=== PATIENT | female | born 1970 | race Caucasian/White ===

== ENCOUNTER → 2019-06-09 06:54 | Outpatient (CLI) | payer BC, SELFPAY ==
--- NOTE | ~2019-06-09 | MM_ITS ---
EXAMINATION: MM screening nohemi BI w lita HISTORY: Screening mammogram TECHNIQUE: Craniocaudal and mediolateral oblique 3-D tomosynthesis images were obtained and synthetic 2-D images were generated. CAD analysis was submitted and interpreted. COMPARISON: 05/13/2018 bilateral digital screening mammogram BREAST PARENCHYMAL COMPOSITION: There are scattered areas of fibroglandular density. FINDINGS: Stable circumscribed approximately 5.5 mm opacity is noted in the outer mid right breast. C ircumscribed 2.8 mm nodule is noted in the upper outer left breast. There is a likely benign intramam paty lymph nodes. There is no evidence of suspicious mass, calcification, or architectural distortion to suggest malignancy in either breast. There has been no suspicious interval change. IMPRESSION: 1. No mammographic evidence of malignancy. 2. Recommend routine screening mammography in one year. BI-RADS Category 2: Benign finding(s). Reviewed, dictated and finalized at location A. DCAST TECHNICIAN
== END ==
PROVIDERS: Visit Provider Obstetrics & Gynecology
DX: Z12.31 Encounter for screening mammogram for malignant neoplasm of breast (principal)
CPT/HCPCS: 77063; 77067

== ENCOUNTER → 2020-04-04 16:33 | Outpatient (CLI) | payer BC, SELFPAY ==
--- NOTE | ~2020-04-04 | XR_ITS ---
EXAMINATION: XR chest 2V DATE: 04/04/2020 16:54 INDICATION: Cough. TECHNIQUE: Frontal and lateral views of the chest were obtained. COMPARISON: None. FINDINGS: The chest demonstrates clear lungs without pneumonia, pleural effusion, or pneumothorax. Th e heart size is normal. IMPRESSION: 1. No acute cardiopulmonary disease. Reviewed, dictated and finalized at location B. IT BREEDER
== END ==
PROVIDERS: PCP Nurse Practitioner Family; Visit Provider Family Medicine
DX: R05 Cough (principal)
CPT/HCPCS: 71046

== ENCOUNTER 2020-04-05 06:57 | Outpatient (NON) | payer BC, SELFPAY ==
[2020-04-05 23:33] LABS: SARS-CoV-2 RNA PCR Negative
== END 2020-04-05 06:58 ==
LOC: ANHCOVIDDT 06:57
PROVIDERS: Visit Provider Family Medicine
DX: Z20.828 Contact with and (suspected) exposure to other viral communicable diseases (principal); R05 Cough
CPT/HCPCS: 87635; C9803; U0003

== ENCOUNTER → 2020-09-28 16:05 | Outpatient (CLI) | payer BC, SELFPAY ==
--- NOTE | ~2020-09-28 | MM_ITS ---
EXAMINATION: MM screening nohemi BI w lita HISTORY: Screening TECHNIQUE: Craniocaudal and mediolateral oblique 3-D tomosynthesis images were obtained and synthetic 2-D images were generated. CAD analysis was submitted and interpreted. COMPARISON: Comparison to multiple prior studies sequentially, with oldest reviewed study dated 05/13. BREAST PARENCHYMAL COMPOSITION: There are scattered areas of fibroglandular density. FINDINGS: There is no evidence of suspicious mass, calcification, or architectural distortion to sugg est malignancy in either breast. There has been no suspicious interval change. IMPRESSION: 1. No mammographic evidence of malignancy. 2. Recommend routine screening mammography in one year. BI-RADS Category 1: Negative Reviewed, dictated and finalized at location A.
== END ==
PROVIDERS: PCP Nurse Practitioner Family; Visit Provider Obstetrics & Gynecology
DX: Z12.31 Encounter for screening mammogram for malignant neoplasm of breast (principal)
CPT/HCPCS: 77063; 77067

== ENCOUNTER → 2021-09-30 07:54 | Outpatient (CLI) | payer BC, SELFPAY ==
--- NOTE | ~2021-09-30 | MM_ITS ---
EXAMINATION: MM screening nohemi BI w lita HISTORY: Screening mammogram, family history of breast cancer in her mother. TECHNIQUE: Craniocaudal and mediolateral oblique 3-D tomosynthesis images were obtained and synthetic 2-D images were generated. CAD analysis was submitted and interpreted. COMPARISON: 09/28/2020 06/09/2019, 05/13/2018 BREAST PARENCHYMAL COMPOSITION: There are scattered areas of fibroglandular density. FINDINGS: A stable intramammary lymph node is noted in the upper outer quadrant of the right breast. There is no suspicious mass, calcification, or architectural distortion to suggest malignancy in eith er breast. There has been no suspicious interval change. IMPRESSION: 1. No mammographic evidence of malignancy. 2. Recommend routine screening mammography in one year. BI-RADS Category 2: Benign finding(s). Reviewed, dictated and finalized at location A.
== END ==
PROVIDERS: PCP Family Medicine; Visit Provider Obstetrics & Gynecology
DX: Z12.31 Encounter for screening mammogram for malignant neoplasm of breast (principal)
CPT/HCPCS: 77063; 77067

== ENCOUNTER → 2022-11-07 15:58 | Outpatient (CLI) | payer BC, SELFPAY ==
--- NOTE | ~2022-11-07 | MM_ITS ---
EXAMINATION: MM screening nohemi BI w lita HISTORY: Screening mammogram, family history of breast cancer in her mother. TECHNIQUE: Craniocaudal and mediolateral oblique 3-D tomosynthesis images were obtained and synthetic 2-D images were generated. CAD analysis was submitted and interpreted. COMPARISON: 09/30/2021, 09/28/2020, 06/09/2019 BREAST PARENCHYMAL COMPOSITION:There are scattered areas of fibroglandular density. FINDINGS: Stable small lymph node at the outer right breast. No suspicious mass, calcification, or ar chitectural distortion are identified in either breast to suggest malignancy. There has been no suspi cious interval change. IMPRESSION: No mammographic evidence of malignancy. Recommend routine screening mammography in one year. BI-RADS Category 2: Benign finding(s). Reviewed, dictated and finalized at location .
== END ==
PROVIDERS: PCP Obstetrics & Gynecology; Visit Provider Obstetrics & Gynecology
DX: Z12.31 Encounter for screening mammogram for malignant neoplasm of breast (principal)
CPT/HCPCS: 77063; 77067

== ENCOUNTER 2023-12-12 15:45 | Outpatient (CLI) | payer BC, SELFPAY ==
--- NOTE | ~2023-12-12 | MM_ITS ---
EXAMINATION: MM screening nohemi BI w lita HISTORY: Screening TECHNIQUE: Craniocaudal and mediolateral oblique 3-D tomosynthesis images were obtained and synthetic 2-D images were generated. CAD analysis was submitted and interpreted. COMPARISON: Comparison to multiple prior studies sequentially, with oldest reviewed study dated 05/13. BREAST PARENCHYMAL COMPOSITION: Not dense: There are scattered areas of fibroglandular density. FINDINGS: There is no evidence of suspicious mass, calcification, or architectural distortion to sugg est malignancy in either breast. There has been no suspicious interval change. IMPRESSION: 1. No mammographic evidence of malignancy. 2. Recommend routine screening mammography in one year. BI-RADS Category 1: Negative Reviewed, dictated and finalized at location B.
== END 2023-12-12 15:46 ==
LOC: MICIMG 15:47
PROVIDERS: PCP Nurse Practitioner Family; Visit Provider Obstetrics & Gynecology
DX: Z12.31 Encounter for screening mammogram for malignant neoplasm of breast (principal)
CPT/HCPCS: 77063; 77067

== ENCOUNTER 2024-11-04 00:15 | Day surgery (SDC) | payer BC, SELFPAY ==
[2024-10-09 14:18] VITALS: BMI 31.8
--- OUTSIDE RECORDS SUMMARY | 2024-11-04 00:18 | XMS_ITS | Clinical Summary ---
Author Organization [facility] Address [address] [place] [address] Care Team Providers Care Assistant Head Cashier Name Role Phone Chiquita Machuca MD Primary Care Provider [phone] Source Comments [facility],non-[facility] Affiliates and Associated Physician Practices is amultiple site organization consisting of ambulatory clinics and hospital sitesin [place], [place], [place] and [place]. This disclosure is being madepursuant to the Care Everywhere program and may not contain all information available regarding this patient. Last updated 18.[facility] [employer] Allergies No known active allergies Medications * Be aware that medications may not be up to date on this document. Alwaysverify current medications with the patient. NORETHINDRONE PO Active benzonatate (TESSALON) 200 MG capsule Take 1 capsule by mouth 3 times daily as needed for Cough 30 capsule 06/26/2017 Active Family History Medical History Relation Name Comments Cancer - Lung Father Hypertension Father Cancer - Breast Mother Hypertension Mother Relation Name Status Comments Father Mother Alive Social History Tobacco Use Types Packs/Day Years Used Date Smoking Tobacco: Some Days Cigars Smokeless Tobacco: Never Comments:Socially only Comments No Sex and Gender Information Value Date Recorded Sex Assigned at Not on file Legal Sex Female 6:37 AM PARAPROFESSIONAL INTERPRETER Gender Identity Not on file Sexual Orientation Not on file Last Filed Vital Signs Vital Sign Reading Time Taken Comments Blood Pressure 118/70 06/26/2017 10:48 AM PARAPROFESSIONAL INTERPRETER Pulse 84 06/26/2017 10:48 AM PARAPROFESSIONAL INTERPRETER Temperature 37.7 C (99.8 F) 06/26/2017 10:48 AM PARAPROFESSIONAL INTERPRETER Respiratory Rate 16 06/26/2017 10:48 AM PARAPROFESSIONAL INTERPRETER Oxygen Saturation 98% 06/26/2017 10:48 AM PARAPROFESSIONAL INTERPRETER Inhaled Oxygen Concentration - - Weight 81.6 kg (180 lb) 06/26/2017 10:48 AM PARAPROFESSIONAL INTERPRETER Height 162.6 cm (5' 4) 06/26/2017 10:48 AM PARAPROFESSIONAL INTERPRETER Body Mass Index 30.9 06/26/2017 10:48 AM PARAPROFESSIONAL INTERPRETER Plan of Treatment Health Maintenance Due Date Last Done Comments COLOGUARD (AGES 45-75) - COL ON CA SCREENING 1968 COLON MONITORING 1968 COLONOSCOPY - COLON CA SCREENING 1968 CT COLONOGRAPHY - COLON CA SCREENING 1968 Colorectal Cancer Screening 1968 FIT - COLON CA SCREENING 1968 FLEX SIG - COLON CA SCREENING 1968 LIPID TESTING 1968 MAMMOGRAM 1968 HIV SCREENING 10/09/1983 HEPATITIS C SCREENING 10/04/1986 DTAP/TDAP/TD VACCINES (1 - Tdap) 10/09/1987 HEPATITIS B VACCINE (1 of 3 - 19+ 3-dose series) 10/09/1987 SCREENING FOR DIABETES 06/26/2017 PNEUMOCOCCAL VACCINE 50+ (1 of 1 - PCV) 2018 ZOSTER VACCINE (1 of 2) 2018 COVID-19 VACCINE (1 - 2023-2 5 season) 2023 DEPRESSION SCREENING 04/29/2024 INFLUENZA VACCINE (#1) 2024 HIB VACCINE Aged Out No longer eligi ble based on patient's age to complete this topic HPV VACCINE Aged Out No longer eligi ble based on patient's age to complete this topic MENINGOCOCCAL (Group B) VACC INE SHARED DECISION-MAKING Aged Out No longer eligibl e based on patient's age to complete this topic MENINGOCOCCAL GROUPS A/C/Y/W VACCINE Aged Out No longer eligible b ased on patient's age to complete this topic Insurance [facility] Address: [address] [address] Care Teams Assistant Head Cashier Relationship Specialty Start Date End Date Chiquita Machuca MD [address] [facility] [id number] PCP - General Internal Medicine 06/26/17
[2024-11-04 08:50] VITALS: BP 114/75; PULSE 81; RESP 12; TEMP 36.6; O2SAT 99; BMI 32.0
[2024-11-04] MEDS: LACTATED RINGERS 1,000 ML 150 ML IV CONT (09:10)
--- NOTE | 2024-11-04 09:12 | P.PNAN_ITS ---
Anes - Initial Pre Proc Eval Procedure: Operation Date: 11/04/24 10:00 Proposed Procedures p Screening Colonoscopy - Toni Mercado MD Date/Time: 11/04/24 09:12 Surgeon: Toni Mercado MD Pre Op Diagnosis: screening Patient Data Age: 54 Gender: F Height: 1.63 m Weight: 84.7 kg Last Vital Signs Temp 97.8 F 11/04/24 08:50 Pulse 81 11/04/24 08:50 Resp 12 11/04/24 08:50 BP 114/75 11/04/24 08:50 Pulse Ox 99 11/04/24 08:50 O2 Del Method Room Air 11/04/24 08:50 Allergies Allergy/AdvReac Type Severity Reaction Status Date / Time No Known Allergies Allergy Verified 11/04/24 08:57 Home Medications ?Medication ?Instructions ?Recorded ?Confirmed ?Type cholecalciferol (vitamin D3) 50 50 mcg PO DAILY 07/11/20 11/04/24 History mcg (2,000 unit) capsule cyanocobalamin (vitamin B-12) 1,000 mcg PO DAILY 07/11/20 11/04/24 History 1,000 mcg capsule escitalopram oxalate 20 mg tablet 10 mg PO DAILY 07/11/20 11/04/24 History (Lexapro) coenzyme Q10 60 mg tablet 60 mg PO DAILY 07/24/21 11/04/24 History krill oil 500 mg capsule 500 mg PO DAILY 07/24/21 11/04/24 History semaglutide 0.25 mg or 0.5 mg (2 0.25 mg subcut WEEKLY 11/04/24 11/04/24 History mg/3 mL) subcutaneous pen injector (Ozempic) Patient hx anesthesia problems: none Family hx anesthesia problems: none Results Review: All pre-operative results and documents have been reviewed as part of the pre- operative evaluation. [facility] Past Medical History Medical History Anxiety HPV test positive Vaginal delivery x2 Surgical History Surgical History History of cholecystectomy Family History Family History Mother Breast cancer Sibling Cervical cancer Mother Family history of hypercholesterolemia Hypertension Family history of malignant neoplasm of breast in first degree relative Father Family history of cardiovascular disease Family history of lung cancer Family history of coronary artery disease Social History Social History Smoking status: Former smoker Tobacco type: cigars Alcohol intake: current Substance use: never Lack of Transportation: No Lack of Food: Never True Current Housing: I Have Housing Concerned About Future Housing: No Difficulty Paying Gas/Electric Bills: No Difficulty Paying for Meds: No Currently Unemployed: No Education: Bachelor's Degree Difficulty w/ Childcare or Family Care: No Anes - Eval Final PreProcedure Day of Procedure 11/04/24 09:12 Patient weight: obese Lungs: normal air movement Airway: Mallampati scale class II Neurological: alert and oriented Last oral intake: >/= 8 hours ASA classification: II Emergent: no Anesthetic plan: proceed Anesthesia type and monitoring: general GIVS and standard monitoring Results Review: All pre-operative results and documents have been reviewed as part of the pre- operative evaluation. BMI 32, active w walking dog, no cp or sob. Off GLP1 2 weeks. Informed Consent: The patient's anesthetic plan and its attendant risks and benefits were discussed with the patient/family/POA. Questions were solicited and answers provided to the satisfaction of the patient/family/POA.
--- NOTE | 2024-11-04 10:00 | P.HP_ITS ---
H&P: HPI History of Present Illness Date/Time: 11/04/24 10:00 Chief Complaint: Family history of colon polyps Narrative: This patient has family history of colorectal polyps. her brother had a premalignant polyp at 35 years old. Review of Systems Review of Systems: All systems reviewed & are unremarkable except as noted in HPI and below PMFSH Past Medical History Medical History (Updated 11/04/24 @ 10:02 by Toni Mercado MD) Anxiety HPV test positive Vaginal delivery x2 Surgical History Surgical History History of cholecystectomy Family History Family History Mother Breast cancer Sibling Cervical cancer Mother Family history of hypercholesterolemia Hypertension Family history of malignant neoplasm of breast in first degree relative Father Family history of cardiovascular disease Family history of lung cancer Family history of coronary artery disease Social History Social History Smoking status: Former smoker Tobacco type: cigars Alcohol intake: current Substance use: never Lack of Transportation: No Lack of Food: Never True Current Housing: I Have Housing Concerned About Future Housing: No Difficulty Paying Gas/Electric Bills: No Difficulty Paying for Meds: No Currently Unemployed: No Education: Bachelor's Degree Difficulty w/ Childcare or Family Care: No Meds Home Medications and Allergies Home Medications ?Medication ?Instructions ?Recorded ?Confirmed ?Type cholecalciferol (vitamin D3) 50 50 mcg PO DAILY 07/11/20 11/04/24 History mcg (2,000 unit) capsule cyanocobalamin (vitamin B-12) 1,000 mcg PO DAILY 07/11/20 11/04/24 History 1,000 mcg capsule escitalopram oxalate 20 mg tablet 10 mg PO DAILY 07/11/20 11/04/24 History (Lexapro) coenzyme Q10 60 mg tablet 60 mg PO DAILY 07/24/21 11/04/24 History krill oil 500 mg capsule 500 mg PO DAILY 07/24/21 11/04/24 History semaglutide 0.25 mg or 0.5 mg (2 0.25 mg subcut WEEKLY 11/04/24 11/04/24 History mg/3 mL) subcutaneous pen injector (Ozempic) Allergies Allergy/AdvReac Type Severity Reaction Status Date / Time No Known Allergies Allergy Verified 11/04/24 08:57 Vital Signs Vital Signs - 24 hr 11/04/24 08:50 Temperature 97.8 F Pulse Rate 81 Respiratory Rate 12 Blood Pressure 114/75 Pulse Oximetry 99 Oxygen Delivery Room Air Exam Const: General: cooperative and healthy appearing Resp: Effort & Inspection: normal respiratory effort and able to speak in complete sentences Auscultation: clear to auscultation bilaterally Cardio: Rate: regular rate Rhythm: regular rhythm GI: Inspection: normal to inspection GI Palp: No No hepatosplenomegaly pr esent Auscultation: normal bowel sounds Rectal Exam: deferred Skin: General skin exam: normal color Psych: Appearance: grossly normal Mental Status: mental status grossly normal Assessment and Plan Assessment and plan (1) Family history of polyps in the colon: Code(s): Z83.719 - Family history of colon polyps, unspecified Status: Acute Assessment and Plan: The patient is deemed a good candidate for the procedure. Consent signed. Will proceed.
[2024-11-04 10:30] VITALS: BP 97/63; PULSE 58; RESP 19; O2SAT 96
[2024-11-04 10:40] VITALS: BP 96/63; PULSE 59; RESP 19; O2SAT 96
[2024-11-04 10:50] VITALS: BP 112/70; PULSE 55; RESP 19; O2SAT 100
== END 2024-11-04 11:06 | disposition home or self-care (01) ==
PROVIDERS: PCP Nurse Practitioner Family; Referring Provider Nurse Practitioner Family; Visit Provider Internal Medicine Gastroenterology
PROC: 0DJD8ZZ Inspection of Lower Intestinal Tract, Via Natural or Artificial Opening Endoscopic (ICD-10-PCS; CPT 45378; principal; 2024-11-04 10:00)
DX: Z12.11 Encounter for screening for malignant neoplasm of colon (principal); F41.9 Anxiety disorder, unspecified; E66.9 Obesity, unspecified; Z68.32 Body mass index [BMI] 32.0-32.9, adult; Z79.85 Long-term (current) use of injectable non-insulin antidiabetic drugs; Z90.49 Acquired absence of other specified parts of digestive tract; Z87.891 Personal history of nicotine dependence; Z83.719 Family history of colon polyps, unspecified; Z80.3 Family history of malignant neoplasm of breast; Z80.49 Family history of malignant neoplasm of other genital organs; Z80.1 Family history of malignant neoplasm of trachea, bronchus and lung; Z82.49 Family history of ischemic heart disease and other diseases of the circulatory system
CPT/HCPCS: 45378; J2003; J2704; J7120

== ENCOUNTER 2024-12-15 15:55 | Outpatient (CLI) | payer BC, SELFPAY ==
--- NOTE | ~2024-12-15 | MM_ITS ---
EXAMINATION: MM screening nohemi BI w lita HISTORY: Screening mammogram, family history of breast cancer in her mother. TECHNIQUE: Craniocaudal and mediolateral oblique 3-D tomosynthesis images were obtained and synthetic 2-D images were generated. CAD analysis was submitted and interpreted. COMPARISON: 12/12/2023, 11/15/2022, 09/30/2021 BREAST PARENCHYMAL COMPOSITION:Not Dense. There are scattered areas of fibroglandular density. FINDINGS: No suspicious mass, calcification, or architectural distortion are identified in either breast to suggest malignancy. There has been no suspicious interval change. IMPRESSION: No mammographic evidence of malignancy. Recommend routine screening mammography in one year. BI-RADS Category 1: Negative Reviewed, dictated and finalized at location .
== END 2024-12-15 15:56 | disposition home or self-care (01) ==
LOC: MICIMG 15:55
PROVIDERS: PCP Nurse Practitioner Family; Visit Provider Obstetrics & Gynecology
DX: Z12.31 Encounter for screening mammogram for malignant neoplasm of breast (principal)
CPT/HCPCS: 77063; 77067